=== PATIENT | female | born 1990 | race Caucasian/White ===

== ENCOUNTER 2018-09-20 22:43 | Emergency (ER) | payer OTHER ==
[~2018-09-20] VITALS: Ht 160 cm; Wt 76.2 kg
[2018-09-20 22:51] VITALS: Ht 160 cm; Wt 76.2 kg
[2018-09-21 00:10] VITALS: BP 120/74
== END 2018-09-21 00:10 | disposition home or self-care (01) ==
LOC: ED 22:43
DX: B34.9 Viral infection, unspecified (principal)
CPT/HCPCS: 87804